=== PATIENT | male | born 1965 | race Caucasian/White ===

== ENCOUNTER 2025-03-21 12:19 | Outpatient (CLI) | payer MEDICAID ==
--- NOTE | 2025-03-21 13:07 | RADIOLOGY REPORT ---
CLINICAL INDICATION: CHRONIC RIGHT HIP PAIN TECHNIQUE: 3 radiographic views of the pelvis were obtained. Comparison: None FINDINGS/IMPRESSION: There is no evidence of acute fracture or dislocation. The visualized joint space is well maintained. The alignment is anatomical. There is no radiopaque foreign body.
== END 2025-03-21 23:59 | disposition home or self-care (01) ==
LOC: RAD 12:19
PROVIDERS: ATTEND Family Medicine
DX: S79.911D Unspecified injury of right hip, subsequent encounter (principal); M25.551 Pain in right hip; X58.XXXD Exposure to other specified factors, subsequent encounter
CPT/HCPCS: 73522

== ENCOUNTER 2025-08-01 15:02 | Outpatient (CLI) | payer MEDICAID ==
[~2025-08-01 15:02] MED LIST: iohexol 300mg/ml 100ml inj. ONE
--- NOTE | 2025-08-01 18:08 | RADIOLOGY REPORT ---
CLINICAL HISTORY: ABDOMINAL HEMATOMA TECHNIQUE: CT of the abdomen was performed with intravenous contrast. 100 ml of omnipaque 300 administered intravenously. This exam was performed according to our departmental dose optimization program. Up-to-date CT equipment and radiation dose reduction techniques are utilized as appropriate. WID: COMPARISON: None FINDINGS: Lower Thorax: Chronic appearing bilateral rib fracture deformities. Linear bibasilar scarring or atelectasis. Heart size is normal. Liver and Biliary system: Normal-sized liver. Mild hepatic steatosis. Major portal veins are patent. No discrete hepatic lesion. Gallbladder is normal caliber. There is no biliary ductal dilatation. Spleen: Unremarkable. Adrenal Glands and Kidneys: Normal adrenal glands. Tiny bilateral renal hypodensities which are too small to characterize. There are tiny nonobstructing left lower pole renal calculi. No hydronephrosis in either kidney Pancreas and Retroperitoneum: Unremarkable. Aorta and Major Vessels: Abdominal aorta and common iliac arteries are patent and normal caliber. There is [id number] mixed atherosclerotic plaque in the abdominal aorta and mild calcified plaque in the visualized iliac arteries. Bowel, Mesentery and Peritoneal space: Normal caliber small and large bowel in the abdomen. Normal appendix. No free air or fluid collection. There is submucosal fatty deposition of the ascending colon. Scattered fluid-filled small bowel loops. Abdominal wall and Osseous Structures: Tiny fat containing umbilical hernia. Multilevel lower thoracic and lumbar spondylosis. No destructive osseous lesion. IMPRESSION: 1. Scattered fluid-filled small bowel loops which may be physiologic or related to infectious or inflammatory enteritis. 2. Submucosal fatty deposition of the ascending colon which could be incidental or related to prior inflammatory bowel disease. 3. Mild hepatic steatosis. 4. Tiny nonobstructing left lower pole renal calculi.
== END 2025-08-01 23:59 | disposition home or self-care (01) ==
LOC: RAD 15:02
PROVIDERS: ATTEND Family Medicine
DX: S79.911D Unspecified injury of right hip, subsequent encounter (principal); S30.11XA Contusion of abdominal wall, initial encounter; M25.551 Pain in right hip; K76.0 Fatty (change of) liver, not elsewhere classified; N20.0 Calculus of kidney; X58.XXXA Exposure to other specified factors, initial encounter; Y93.89 Activity, other specified; Y92.89 Other specified places as the place of occurrence of the external cause; Y99.8 Other external cause status
CPT/HCPCS: 74160; Q9967

== ENCOUNTER 2025-09-19 08:15 | Outpatient (CLI) | payer MEDICAID ==
--- NOTE | 2025-09-20 05:18 | RADIOLOGY REPORT ---
CLINICAL INDICATION: PAIN IN RIGHT HIP COMPARISON: None TECHNIQUE: Multiplanar, multi-sequence MRI of the right hip was performed without intravenous contrast. Evaluation is limited by lack of dedicated axial images. Contrast: None INTERPRETATION: Bones/ joints /articular cartilage: No acute fracture or avascular necrosis. There is a small focus of bone marrow edema in the femoral head. There is right hip joint space narrowing. Chondral thinning is present over the femoral head and the anterior superior acetabulum. Small subchondral cysts noted in the superolateral acetabulum. There is a small right hip joint effusion. No synovitis. The right hip alignment is maintained. The contralateral hip is included on the large [id number] images and shows no acute abnormality. Tendons, muscles and bursae: No evidence of significant tendinopathy or tendon tear. Muscles are normal in bulk and signal characteristics. No bursitis or other fluid collection. Acetabular labrum: Degeneration of the anterior superior labrum without a discrete tear identified. Other: There are bilateral fat containing inguinal hernias. Urinary bladder wall thickening. IMPRESSION: 1. Mild right hip joint degenerative changes. 2. Urinary bladder wall thickening. This may be related to underdistention however correlation for cystitis is recommended. 3. Fat containing inguinal hernias.
== END 2025-09-19 23:59 | disposition home or self-care (01) ==
LOC: MRI02 08:15
PROVIDERS: ATTEND Nurse Practitioner Occupational Health
DX: M16.11 Unilateral primary osteoarthritis, right hip (principal); M25.551 Pain in right hip; K40.20 Bilateral inguinal hernia, without obstruction or gangrene, not specified as recurrent
CPT/HCPCS: 73721